=== PATIENT | female | born 1980 | race African-American/Black ===

== ENCOUNTER 2018-07-01 11:17 | Emergency (ER) | payer SELFPAY ==
[2018-07-01] MEDS ORDERED: HYDROcodone/Acetaminophen 5/325 mg Tablet ONE (12:01)
[2018-07-01] MEDS ORDERED: Ibuprofen 200 MG TAB ONE (12:02)
[2018-07-01] MEDS ORDERED: Adacel (T-DAP) 0.5 ML SYRINGE ONE (12:02)
--- NOTE | 2018-07-01 15:59 | RAD ---
LEFT FOOT THREE VIEWS: Date: 07-01-18 FINDINGS: No fracture or joint abnormality was seen. On the lateral view a marker points to a site of puncture wound entry. There is a very faint vertical density that seems a little denser than the connective tissue around it. I cannot exclude a very min imal strand of a foreign body here. There is some mild swelling on the dorsum of the forefoot. IMPRESSION: Possible minimal strand of a foreign body at the site of entry. Code T POS: HOME
== END 2018-07-01 12:52 | disposition home or self-care (01) ==
LOC: BURERS 11:17
DX: S91.332A Puncture wound without foreign body, left foot, initial encounter (principal); F41.9 Anxiety disorder, unspecified; F31.9 Bipolar disorder, unspecified; F43.10 Post-traumatic stress disorder, unspecified; F17.210 Nicotine dependence, cigarettes, uncomplicated; Z79.899 Other long term (current) drug therapy; W45.0XXA Nail entering through skin, initial encounter
CPT/HCPCS: 90471; 90715

== ENCOUNTER 2019-01-06 18:50 | Emergency (ER) | payer BC, SELFPAY ==
[2019-01-06 19:12] LABS: Pregnancy Test - Urine (BHCG) Negative (Negative); Pregu Control Background? CLEAR/WHITE (CLR/WHITE); Pregu Control Bar Appear? YES (CONTROL BAR); Specific Gravity 1.029 (1.002-1.036)
[2019-01-06 19:14] LABS: Bilirubin Small (Negative); Blood, Urine Negative (Negative); Clarity Hazy (Clear); Glucose, Urine (Dipstick) Negative (Negative); Leukocyte Negative (Negative); Nitrite Negative (Negative); Protein, Urine (Dipstick) 30 mg/dL (Neg-Trace)
[2019-01-06 19:21] LABS: Bacteria/HPF Rare-Few HPF (None Seen); Mucous/LPF 2+ LPF (<2+); Other Microscopic Description FEW CLUE CELLS; RBC/HPF 0-3 HPF (0-3); Squamous Epithelial 0-3 HPF (0-3); WBC/HPF 0-3 HPF (0-3)
[2019-01-06] MEDS ORDERED: cefTRIAXone\\ROCEPHIN 500 MG VIAL ONE (19:37)
[2019-01-06] MEDS ORDERED: Lidocaine 1% PF 5 ML VIAL ONE (19:41)
[2019-01-08 21:45] LABS: Chlamydia by PCR Not Detected (NotDetected); GC by PCR Not Detected (NotDetected)
== END 2019-01-06 19:44 | disposition home or self-care (01) ==
LOC: BURERS 18:50
DX: N72 Inflammatory disease of cervix uteri (principal); F41.9 Anxiety disorder, unspecified; F31.9 Bipolar disorder, unspecified
CPT/HCPCS: 81003; 81015; 81025; 87480; 87491; 87510; 87591; 87660; 99283; J0696; J2001

== ENCOUNTER 2020-10-31 14:12 | Emergency (ER) | payer SELFPAY ==
[2020-10-31] MEDS ORDERED: Ketorolac Tromethamine 30 MG/ML VIAL ONE (14:57)
== END 2020-10-31 15:24 | disposition home or self-care (01) ==
LOC: BURERS 14:12
DX: R07.89 Other chest pain (principal); F17.210 Nicotine dependence, cigarettes, uncomplicated
CPT/HCPCS: 71045; 93005; 96374; J1885

== ENCOUNTER 2020-11-20 02:36 | Emergency (ER) | payer SELFPAY ==
[2020-11-20] MEDS ORDERED: Lidocaine 1% w/Epinephrine 1:100K 20 ML VIAL ONE (02:44)
[2020-11-20] MEDS ORDERED: Bacitracin 1 PK ONE ×2 (03:02→03:05)
[2020-11-20] MEDS ORDERED: Amoxicillin/Potassium Clav 875 MG TAB ONE (03:02)
== END 2020-11-20 03:13 | disposition home or self-care (01) ==
LOC: BURERS 02:36
DX: S11.91XA Laceration without foreign body of unspecified part of neck, initial encounter (principal); F17.210 Nicotine dependence, cigarettes, uncomplicated; W26.0XXA Contact with knife, initial encounter
CPT/HCPCS: 12001